=== PATIENT | male | born 1965 | race Caucasian/White ===

== ENCOUNTER 2022-05-24 08:59 | Observation (INO) ==
[2022-05-24] MEDS ORDERED: cefTRIAXone SODIUM 2,000 MG/70 ML BAG IV STA (10:11)
--- NOTE | 2022-05-24 10:13 | Emergency Department Note ---
Impression & Plan Cellulitis of left hand, Infected dog bite of hand, Failure of outpatient treatment ED Provider Note CHIEF COMPLAINT: Continued infection in the left hand x5 days HISTORY OF PRESENT ILLNESS: Patient is a [id number] 56-year-old male with past medical history significant for hypertension, dyslipidemia, gout, fibromyalgia, and other chronic medical problems returns the emergency depar tment for continued left hand pain. Patient was seen and evaluated here 1 week ago for urinary symptoms and diagnosed with a UTI. He was started on Cipro for 10 days. He came back 2 days later, this time complaining of pain in the left hand and the left elbow after he had been bitten by his own dog several days prior to that. He was thoroughly evaluated and treated for an infected dog bite. Metronidazole was added to his regimen for 8 days. Patient states that the left elbow pain is completely resolved. He has full range of motion here, still has some fullness and swelling over the olecranon bursa but he is primarily concerned because he still has pain in the left second MCP joint near the site of the dog bite. He has been taking Tylenol for pain and using warm compresses. He is taking the antibiotics as prescribed. He states his pain is a constant, throbbing 6/10 and he is unable to move the fingers normally secondary to pain and swelling. [facility] REVIEW OF SYSTEMS: Review of systems as per HPI. All other systems reviewed we re negative. 10 systems reviewed. PMH: Electronic medical records are reviewed and summarized as above/below. See Problem List. He reports that his tetanus is up-to-date. SOCIAL HISTORY: Patient lives at home. Non-smoker. PHYSICAL EXAM: Vital Signs: Reviewed Nurse's notes. CONSTITUTIONAL: Patient is a well-appearing 56-year-old male who is awake and alert and in no acute distress sitting upright on the gurney. He has his left arm in a sling. HEART: Regular rate and rhythm. LUNGS: Clear to auscultation. MUSCULOSKELETAL: Examination of the left upper extremity note a scabbed over h ealing bite site on the dorsal aspect of the left hand, over the second MCP joint. He is quite tender to palpation over this area, there is soft tissue swelling on both the palmar and volar aspect of the finger. Pain extends out the second digit, to the DIP joint. He has pain with passive extension, and with passive flexion. His active range of motion is also markedly limited secondary to pain and soft tissue swelling. There is no erythema or lymphangitic streaking. The wrist is nontender to palpation, he has pain in the left second finger with the wrist flexion. The left elbow notes some bogginess and fullness over the olecranon consistent with bursitis but it is nontender. There is no redness or warmth. Elbow range of motion is full. The left upper extremity is neurovascularly intact. EMERGENCY DEPARTMENT COURSE: The patient was seen and assessed as above. Old records are reviewed. He presents emergency department for evaluation of ongoing left hand pain after being bitten by his dog over a week ago. He has been on antibiotics, double coverage with Cipro and metronidazole since last Tuesday, 5 days ago but his symptoms are getting worse. Urine culture grew a pansensitive E. coli. IV lock was initiated. CBC with differential, sed rate, PT/INR, BMP and C-reactive protein were collected. CT scan of the left hand with IV contrast was performed. Patient was given ceftriaxone 2 g IV empirically. Laboratory studies are reassuring. White count is normal. His sed rate and C- reactive protein are elevated at 38 and 2.43 respectively, but are improved from 5 days ago. His INR is mildly elevated at 3.3. Electrolytes and renal functions are normal. CT scan of the left hand is concerning for cellulitis of the left second finger and possible myositis. There is a joint effusion with synovial thickening and enhancement of the left second MCP joint, nonspecific in nature, could be infectious or inflammatory. Septic arthritis cannot be excluded. There is no fracture. No soft tissue gas. No evidence for acute osteomyelitis. I did review patient history, presentation and ED work-up with attending physician, Dr. Mcclain. Consultation was placed with orthopedic surgery, I have reviewed the patient with Dr. Spaulding ([facility] He does agree with admission for IV antibiotics. He does not think that he has a surgical need immediately but they would be happy to consult. He did also asked that I have the patient placed in a splint to rest the affected joint. This was ordered. I did order a COVID test for admitting purposes. Nursing staff reported to me that he refused this. I did speak with Dr. You with the [place] hospitalist team for admission. Differential diagnoses considered included fracture, cellulitis, abscess, tendon rupture, infectious tenosynovitis, septic joint, osteomyelitis, among others. Past Med/Surg History Medical History Allergic rhinitis Asthma Fibromyalgia Gout History of blood clots leg History of bronchitis Hypercholesteremia Hypertension Memory loss Surgical History History of vasectomy Hx of colonoscopy Family History Father Prostate cancer Other No family history of adverse response to anesthesia No family history of bleeding disorder Social History Smoking Status: Never smoker Second Hand Exposure: No; Hx Alcohol Use: Yes Hx Substance Use: No Preferred Language: Bengali marital status: Current Living Situation Comment: Spouse and children current occupational status: employed 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 Feels Safe at Home: Yes Physical Activity Frequency: 3-4 Times per Week Allergies Allergies Allergy/AdvReac Type Severity Reaction Status Date / Time Penicillins Allergy Unknown CAN'T Verified 05/24/22 15:07 REMEMBER Home Meds Home Medications Medication Instructions Recorded Confirmed cholecalciferol (vitamin D3) 25 1,000 unit PO DAILY 07/02/19 05/24/22 mcg (1,000 unit) chewable tablet warfarin 10 mg tablet 5 mg PO QPM 07/02/19 05/24/22 losartan 100 mg tablet 100 mg PO DAILY 04/01/20 05/24/22 atorvastatin 20 mg tablet 20 mg PO QPM 05/17/22 05/24/22 fluticasone 500 mcg-salmeterol 50 2 inh inhalation BID 05/17/22 05/24/22 mcg/dose blistr powdr for inhalation (Wixela Inhub) hydrochlorothiazide 12.5 mg tablet 12.5 mg PO DAILY 05/17/22 05/24/22 pregabalin 75 mg capsule (Lyrica) 75 mg PO DAILY 05/17/22 05/24/22 Previous Rx's Medication Instructions Recorded ciprofloxacin HCl 500 mg tablet 500 mg PO BID 14 days #28 tabs 05/17/22 (Cipro) metronidazole 500 mg tablet 500 mg PO TID #29 tabs 05/19/22 Results & Data (ED) Vital Signs Vital Signs - 24 hr 05/24/22 09:11 05/24/22 12:59 05/24/22 10:59 Temperature 36.9 C Temperature Source Oral Pulse Rate 75 Pulse Rate [Finger] 59 L 62 Pulse Rhythm [Finger] Regular Regular Pulse Strength [Finger] Normal Normal Respiratory Rate 18 20 18 Respiratory Effort / Characteristics Non-Labored Spontaneous Non-Labored Spontaneous Respiratory Depth Normal Normal Respiratory Pattern Regular Blood Pressure 127/92 Blood Pressure [Right Arm] 110/76 117/83 Blood Pressure Mean 103 Blood Pressure Mean [Right Arm] 87 94 Blood Pressure Position [Right Arm] Lying Lying Pulse Oximetry 97 98 96 Oxygen Delivery Method Room Air Room Air Room Air Sepsis Recent Fever Within 48 Hours No Sepsis New/Unexplained Change in Mental Status No Sepsis Action Taken by Nursing No Action Required Home Medications Current Medication List: was personally reviewed by me Laboratory Data Attestation: I reviewed the patient's lab results. Result diagrams: 05/24/22 10:23 05/24/22 10:23 Lab Results 05/24/22 05/24/22 05/24/22 Range/Units 10:23 10:23 10:23 WBC 8.79 (4.8-10.8) K/ul RBC 5.28 (4.63-6.08) M/uL Hgb 15.5 (14.0-18.0) g/dl Hct 45.4 (40.1-51.0) % MCV 86.0 (80.0-100.0) fL MCH 29.4 (25.0-34.0) pg MCHC 34.1 (32.0-36.0) g/dL RDW Std Deviation 41.9 (36.4-46.3) fL RDW Coeff of Aysha 13.3 (11.5-14.5) % Plt Count 288 (130-400) K/uL MPV 9.9 (9.4-12.4) fL Immature Gran % (Auto) 5.0 % Neut % (Auto) 62.4 % Lymph % (Auto) 23.7 % Redwood % (Auto) 6.1 % Eos % (Auto) 1.7 % Baso % (Auto) 1.1 % Neut # (Auto) 5.48 (1.4-6.5) K/uL Lymph # (Auto) 2.08 (1.2-3.4) K/uL Redwood # (Auto) 0.54 (0.24-0.82) K/uL Eos # (Auto) 0.15 (0-0.50) K/uL Baso # (Auto) 0.10 (0-0.2) K/uL Immature Gran # (Auto) 0.44 H (0.00-0.02) K/uL ESR 38 H (0-20) mm/hr PT (9.0-12.0) Seconds INR (0.9-1.1) Sodium 138 (136-145) mmol/L Potassium 4.1 (3.5-5.1) mmol/L Chloride 105 (98-107) mmol/L Carbon Dioxide 26 (21-32) mmol/L Anion Gap 7 (3-11) BUN 14 (6-23) mg/dl Creatinine 0.95 (0.6-1.4) mg/dl Est Cr Clr Drug Dosing 117.0 ml/min Est GFR ( Amer) 104.8 ml/min Est GFR (Non-Af Amer) 90.4 ml/min BUN/Creatinine Ratio 14.7 (10-20) Glucose 110 H (70-99(Fasting)) mg/dl Calcium 9.5 (8.5-10.1) mg/dl C-Reactive Protein 2.43 H (0-0.5) mg/dl 05/24/22 Range/Units 10:23 WBC (4.8-10.8) K/ul RBC (4.63-6.08) M/uL Hgb (14.0-18.0) g/dl Hct (40.1-51.0) % MCV (80.0-100.0) fL MCH (25.0-34.0) pg MCHC (32.0-36.0) g/dL RDW Std Deviation (36.4-46.3) fL RDW Coeff of Aysha (11.5-14.5) % Plt Count (130-400) K/uL MPV (9.4-12.4) fL Immature Gran % (Auto) % Neut % (Auto) % Lymph % (Auto) % Redwood % (Auto) % Eos % (Auto) % Baso % (Auto) % Neut # (Auto) (1.4-6.5) K/uL Lymph # (Auto) (1.2-3.4) K/uL Redwood # (Auto) (0.24-0.82) K/uL Eos # (Auto) (0-0.50) K/uL Baso # (Auto) (0-0.2) K/uL Immature Gran # (Auto) (0.00-0.02) K/uL ESR (0-20) mm/hr PT 32.9 H (9.0-12.0) Seconds INR 3.3 H (0.9-1.1) Sodium (136-145) mmol/L Potassium (3.5-5.1) mmol/L Chloride (98-107) mmol/L Carbon Dioxide (21-32) mmol/L Anion Gap (3-11) BUN (6-23) mg/dl Creatinine (0.6-1.4) mg/dl Est Cr Clr Drug Dosing ml/min Est GFR ( Amer) ml/min Est GFR (Non-Af Amer) ml/min BUN/Creatinine Ratio (10-20) Glucose (70-99(Fasting)) mg/dl Calcium (8.5-10.1) mg/dl C-Reactive Protein (0-0.5) mg/dl Administered Medications Discontinued Medications Ceftriaxone Sodium (Rocephin) 2,000 mg in 70 mls @ 140 mls/hr IV NOW STA Stop: 05/24/22 10:40 Last Infusion: 05/24/22 11:24 Dose: 0 mls/hr Documented By: [id number] Admin: 05/24/22 10:44 Dose: 140 mls/hr Documented By: HG Ioversol (Optiray 350 100ml) 94 ml IV ONCE ONE Stop: 05/24/22 11:34 Last Admin: 05/24/22 11:33 Dose: 94 ml Documented By: AGUSTÍN Imaging Data Attestation: I personally reviewed and interpreted this imaging study as follows: Radiologist's Impression: Hand CT 05/24/22 10:11 CT hand LT w con CLINICAL HISTORY: DOG BITE, EVAL PAIN AT 2ND MCP JOINT COMPARISON STUDY: No previous studies for comparison. TECHNIQUE: Axial images of the left hand were obtained following intravenous injection of 94 cc of Optiray 350 IV. Sagittal and coronal reconstructions were viewed. Automated exposure control was utilized for the study. A dose lowering technique was utilized adhering to the principles of ALARA. FINDINGS: Alignment of the left hand is anatomic. There is no acute fracture. There is no radiopaque foreign body. Carpal bones are intact. Cystic change within the distal scaphoid is degenerative. Note is made of calcifications along the palmar aspect of the carpal bones. There are also multifocal soft tissue calcifications along the lateral aspect of the left second metacarpophalangeal joint. There is a left second metacarpophalangeal joint effusion with synovial enhancement. Note is made of infiltration of the left second finger consistent with cellulitis. No soft tissue gas is present. No fluid collections are p resent. There is apparent soft tissue thickening along the flexor musculature of the left second finger. There is no CT evidence for tenosynovitis. No bony erosions are identified to suggest acute osteomyelitis. IMPRESSION: 1. Findings consistent with left second finger cellulitis and possible myositis of the flexor musculature. No soft tissue gas. No fracture. No evidence for acute osteomyelitis. 2. Soft tissue calcifications adjacent to the left second metacarpophalangeal joint. Although nonspecific, these are likely degenerative or inflammatory. A post traumatic etiology is considered less likely. 3. Left second metacarpophalangeal joint effusion with synovial thickening and enhancement. This joint effusion is also nonspecific and could be infectious or inflammatory. However, a septic arthritis cannot be excluded by imaging. ACT 112: Negative or not required by law. Electronically signed by: Joe Mckeon M.D. 05/24/2022 12:11 PM Discharge Plan Visit Data Chief Complaint: Finger Pain Stated Complaint: L INDEX FINGER PAIN ED Provider: Jayden Mcclain ED Midlevel Provider: Chester Ac Discharge Problem: Cellulitis of left hand, Infected dog bite of hand, Failure of outpatient treatment Patient Disposition: Being Evaluated by Hospitalist Forms Stand Alone Forms: My [facility] Prescriptions Prescriptions: No Action losartan 100 mg tablet 100 mg PO DAILY warfarin 10 mg tablet 5 mg PO QPM cholecalciferol (vitamin D3) 1,000 unit Tablet,Chewable 1,000 unit PO DAILY metronidazole 500 mg tablet 500 mg PO TID Qty: 29 0RF atorvastatin 20 mg tablet 20 mg PO QPM pregabalin [Lyrica] 75 mg Capsule 75 mg PO DAILY hydrochlorothiazide 12.5 mg tablet 12.5 mg PO DAILY fluticasone propion-salmeterol [Wixela Inhub] 500-50 mcg/dose blister with device 2 inh INHALATION BID ciprofloxacin HCl [Cipro] 500 mg tablet 500 mg PO BID 14 Days Qty: 28 0RF Referrals Referrals: PCP,NO [Primary Care Provider] -
[2022-05-24 10:41] LABS: Basophils % (auto) 1.1 %; Eosinophils # (auto) 0.15 K/uL (0-0.50); Eosinophils % (auto) 1.7 %; Hematocrit (blood only) 45.4 % (40.1-51.0); Hemoglobin 15.5 g/dl (14.0-18.0); Immature Granulocytes # (auto) 0.44 K/uL (0.00-0.02); Lymphocytes # (auto) 2.08 K/uL (1.2-3.4); Lymphocytes % (auto) 23.7 %; Mean Corpuscular Hemoglobin 29.4 pg (25.0-34.0); Mean Corpuscular Hgb Conc 34.1 g/dL (32.0-36.0); Mean Platelet Volume 9.9 fL (9.4-12.4); Monocytes # (auto) 0.54 K/uL (0.24-0.82); Monocytes % (auto) 6.1 %; Neutrophils # (auto) 5.48 K/uL (1.4-6.5); Neutrophils % (auto) 62.4 %; Platelet Count 288 K/uL (130-400); RDW Coefficient of Variation 13.3 % (11.5-14.5); RDW Standard Deviation 41.9 fL (36.4-46.3); Red Blood Count 5.28 M/uL (4.63-6.08); White Blood Count 8.79 K/ul (4.8-10.8)
[2022-05-24 10:56] LABS: INR 3.3 (0.9-1.1); Prothrombin Time 32.9 Seconds (9.0-12.0)
[2022-05-24 11:12] LABS: BUN Creatinine Ratio 14.7 (10-20); C Reactive Protein 2.43 mg/dl (0-0.5); Calcium 9.5 mg/dl (8.5-10.1); Est GFR (African American) 104.8 ml/min; Est GFR (Non-African American) 90.4 ml/min; Potassium 4.1 mmol/L (3.5-5.1)
[2022-05-24] MEDS ORDERED: OPTIRAY 350 100ml IV ONE (11:33)
--- NOTE | 2022-05-24 12:12 | CT Scan Report ---
CT hand LT w con CLINICAL HISTORY: DOG BITE, EVAL PAIN AT 2ND MCP JOINT COMPARISON STUDY: No previous studies for comparison. TECHNIQUE: Axial images of the left hand were obtained following intravenous injection of 94 cc of Op tiray 350 IV. Sagittal and coronal reconstructions were viewed. Automated exposure control was utiliz ed for the study. A dose lowering technique was utilized adhering to the principles of ALARA. FINDINGS: Alignment of the left hand is anatomic. There is no acute fracture. There is no radiopaque foreign body. Carpal bones are intact. Cystic change within the distal scaphoid is degenerative. Note is made of calcifications along the palmar aspect of the carpal bones. There are also multifocal sof t tissue calcifications along the lateral aspect of the left second metacarpophalangeal joint. There is a left second metacarpophalangeal joint effusion with synovial enhancement. Note is made of infilt ration of the left second finger consistent with cellulitis. No soft tissue gas is present. No fluid collections are present. There is apparent soft tissue thickening along the flexor musculature of the left second finger. There is no CT evidence for tenosynovitis. No bony erosions are identified to garcia ggest acute osteomyelitis. IMPRESSION: 1. Findings consistent with left second finger cellulitis and possible myositis of the flexor muscula ture. No soft tissue gas. No fracture. No evidence for acute osteomyelitis. 2. Soft tissue calcifications adjacent to the left second metacarpophalangeal joint. Although nonspec ific, these are likely degenerative or inflammatory. A post traumatic etiology is considered less lik aniyah. 3. Left second metacarpophalangeal joint effusion with synovial thickening and enhancement. This join t effusion is also nonspecific and could be infectious or inflammatory. However, a septic arthritis c annot be excluded by imaging. ACT 112: Negative or not required by law. Electronically signed by: Joe Mckeon M.D. 05/24/2022 12:11 PM
--- NOTE | 2022-05-24 14:39 | History & Physical Report ---
Date of Service May 24, 2022 Assessment & Plan (1) Cellulitis of left hand: Plan: Infected Dog Bite R Hand - Dog Bite 05/14-05/15. Did not initially report this, was seen for UTI 05/17, and then returned 05/19 with hand pain for which Flagyl was added to Cipro which she was placed on for the UTI -Discussed between ER and Dr. Spaulding: Not immediately surgical. Recommended IV antibiotics. - Discussed w/ ortho PA at bedside. Clinical re-eval 05/25 for washout eval, continue abx for now. Penicillin allergy, unknown reaction Admitted on Rocephin plus Flagyl IV. If worsening can switch to Carbapenem, given downtrending inflammatory markers low suspicion for treatment failure at this time. No leukocytosis. Hemoglobin 15.5. ESR 38 (from 5311/9). CRP 2.43 from 14.79 creatinine is normal at baseline, admitting creatinine 0.95. - [place] patient, tetanus up to date. 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 -INR greater than 3 on admission Warfarin held INR trended Suspect supratherapeutic INR in the setting of antibiotic use Asthma Continue inhaler/formulary. Patient's home inhaler switched to formulary equivalent, reports his can bring in his home. If he brings in his home may verify with pharmacy and use his home Wixela twice daily instead. No signs of asthma exacerbation Hyperlipidemia Continue statin DVT prophylaxis: Anticoagulated Disposition: Medical surgical Diet: Heart healthy CODE STATUS: Full code (2) Infected dog bite of hand: (3) Hypertension: (4) Asthma: (5) Hypercholesteremia: History of Present Illness Primary Care Provider: NO PCP Magdiel is a 56-year-old male with a past medical history of hyperlipidemia, gout, hypertension, asthma who is right-hand dominant and who presents for reevaluation of left hand pain. Recently completed a 10-day course of ciprofloxacin for UTI, presents today with pain in the left hand and elbow after a dog bite several days prior. He was seen in the ER following this and Flagyl was added to ciprofloxacin. Elbow pain completely resolved, but continues to have pain at the left second MCP joint near the dog bite. [facility] who was not scheduled for follow-up until next week. CT shows left second finger cellulitis with suspected myositis of the flexor muscle. Soft tissue calcifications are present, left second metacarpophalangeal joint effusion with thickening and enhancement nonspecific but which cannot exclude septic arthritis Per patient got nipped by his dog when playing on Sat, was seen and started on Flagyl. Was seen on Tuesday for a UTI but hadn't mentioned the hand bite. At first pain was from elbow to hand, after Cipro/Flagyl the elbow pain completely resolved and can move but hand pain has not improved at all. Pain is worse in 2nd MCP and PIP, pain radiating between the two joints when he bends it. WOrsened by pain. Can only flex 2nd digit about 90 degrees before limited by induction of pain. No numbness/tingling in the figertips. No pain in MCP of the 1, 3-5th digits. No pain on wrist extension, +pain fromtightness on wrist flexion at the knuckle. No fevers, chills, sweats, numbness, tingling. +swelling in the hand. No pus/discharge. Abx as noted, APAP 650mg 3 pills at once in the evening. Helps a little. At present pain is 4/10. Has not taking any tylneol today. No narcotics per pt 2/2 severe nausea Medical History: Reviewed Medications: Reviewed. Takes Losartan, atorvastain, hctz, lyrica, warfarin. Wixela Surgical History: Reviewed Allergies: Reviewed. PCN but not sure what the allergy was. Social History: Chews, 1 can per week. No alcohol use. Code Status: would be surrogate DM. Full Code. Allergies Allergy/AdvReac Type Severity Reaction Status Date / Time Penicillins Allergy Unknown CAN'T Verified 05/17/22 17:35 REMEMBER Home Medications Medication Instructions Recorded Confirmed Type cholecalciferol (vitamin D3) 25 1,000 unit PO DAILY 07/02/19 05/17/22 History mcg (1,000 unit) chewable tablet warfarin 10 mg tablet 5 mg PO QPM 07/02/19 05/17/22 History losartan 100 mg tablet 100 mg PO DAILY 04/01/20 05/17/22 History atorvastatin 20 mg tablet 20 mg PO QPM 05/17/22 05/17/22 History ciprofloxacin HCl 500 mg tablet 500 mg PO BID 14 days #28 tabs 05/17/22 Rx (Cipro) fluticasone 500 mcg-salmeterol 50 2 inh inhalation BID 05/17/22 05/17/22 History mcg/dose blistr powdr for inhalation (Wixela Inhub) hydrochlorothiazide 12.5 mg tablet 12.5 mg PO DAILY 05/17/22 05/17/22 History pregabalin 75 mg capsule (Lyrica) 75 mg PO DAILY 05/17/22 05/17/22 History metronidazole 500 mg tablet 500 mg PO TID #29 tabs 05/19/22 Rx Past Med/Surg History Medical History Allergic rhinitis Asthma Fibromyalgia Gout History of blood clots leg History of bronchitis Hypercholesteremia Hypertension Memory loss Surgical History History of vasectomy Hx of colonoscopy Family History Father Prostate cancer Other No family history of adverse response to anesthesia No family history of bleeding disorder Social History Smoking Status: Never smoker Second Hand Exposure: No; Hx Alcohol Use: Yes Hx Substance Use: No Preferred Language: Korean marital status: Current Living Situation Comment: Spouse and children current occupational status: employed 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 NAD. Cooperative. HEENT: Atraumatic, normocephalic. Vision and hearing intact Pulm: CTAB A&P. -wheezes, -rales, -rhonchi. Symmetrical chest rise. No increased work of breathing. No respiratory distress. Cardiac: RRR, -mrg. Radial pulses intact and symmetrical. Abdominal: Nontender, nondistended, soft. BS present. Extremities: Left second MCP with localized swelling and small area of scab, scant erythema. Prominently tender to the touch. Pain is elicited at the MCP and radiating between the PIP on finger flexion, patient is unable to flex the second digit more than 90 degrees due to pain limitation. Mild pain on wrist flexion due to tightness, no pain on wrist extension. Sensation soft touch intact in all 5 digits bilaterally, slight tingling in second fingertip on the left hand. No tracking erythema into the forearm, elbow and forearm is nontender and elbow flexion/extension on the left is without pain and without pain on passive movement. Results & Data Results & Data ([facility]) Vital Signs (Past 12 Hours) Vital Signs Temp Pulse Pulse Resp BP BP Pulse Ox 05/24/22 10:59 62 18 117/83 96 05/24/22 12:59 59 L 20 110/76 98 05/24/22 09:11 36.9 C 75 18 127/92 97 O2 Del Method 05/24/22 10:59 Room Air 05/24/22 12:59 Room Air 05/24/22 09:11 Room Air PG Care Time/CCT Total # of Minutes Spent Total Time Spent with Patient: Total time spent is greater than 50% in coordination of care (as documented) at patient's floor/unit and/or counseling patient: Coding Level of Care Code INT OBSERVATION CARE 50M LVL 2 Diagnoses Cellulitis of left hand L03.114 Infected dog bite of hand S61.459A; L08.9; W54.0XXA Hypertension I10 Hypertension type: unspecified Asthma J45.909 Hypercholesteremia E78.00 (1) Hypertension Hypertension type: unspecified Qualified Code(s): I10 - Essential (primary) hypertension
--- NOTE | 2022-05-24 15:06 | Orthopedic Consultation ---
Date of Service May 24, 2022 Assessment & Plan (1) Cellulitis of left hand: Patient to be admitted to med/surg floor and placed on IV antibiotics. I discussed the possibility of an open I and D in the AM. I think giving the IV antibiotics a day is appropriate. I placed him NPO after midnight. Decision for I and D will be made in the AM. (2) Infected dog bite of hand: History of Present Illness Reason for Consultation: . Requesting Physician: . Patient was bitten in his left hand by his dog last tuesday. He developed redness and pain that radiated from the puncture wound over the web extensor tendon over the left index finger. He states that pain and redness went up to his elbow. He came to the ER and was placed on oral antibiotics. The antibiotic helped with pain and redness in the forearm but he still has a lot of pain trying to flex and extend his index finger. He describes no fever, fatigue, numbness, or tingling. Allergies Allergy/AdvReac Type Severity Reaction Status Date / Time Penicillins Allergy Unknown CAN'T Verified 05/24/22 15:07 REMEMBER Home Medications Medication Instructions Recorded Confirmed Type cholecalciferol (vitamin D3) 25 1,000 unit PO DAILY 07/02/19 05/24/22 History mcg (1,000 unit) chewable tablet warfarin 10 mg tablet 5 mg PO QPM 07/02/19 05/24/22 History losartan 100 mg tablet 100 mg PO DAILY 04/01/20 05/24/22 History atorvastatin 20 mg tablet 20 mg PO QPM 05/17/22 05/24/22 History ciprofloxacin HCl 500 mg tablet 500 mg PO BID 14 days #28 tabs 05/17/22 05/24/22 Rx (Cipro) fluticasone 500 mcg-salmeterol 50 2 inh inhalation BID 05/17/22 05/24/22 History mcg/dose blistr powdr for inhalation (Wixela Inhub) hydrochlorothiazide 12.5 mg tablet 12.5 mg PO DAILY 05/17/22 05/24/22 History pregabalin 75 mg capsule (Lyrica) 75 mg PO DAILY 05/17/22 05/24/22 History metronidazole 500 mg tablet 500 mg PO TID #29 tabs 05/19/22 05/24/22 Rx Past Med/Surg History Medical History Allergic rhinitis Asthma Fibromyalgia Gout History of blood clots leg History of bronchitis Hypercholesteremia Hypertension Memory loss Surgical History History of vasectomy Hx of colonoscopy Family History Father Prostate cancer Other No family history of adverse response to anesthesia No family history of bleeding disorder Social History Smoking Status: Never smoker Second Hand Exposure: No; Hx Alcohol Use: Yes Alcohol type: wine Hx Substance Use: No Preferred Language: Montenegrin Communication Ability: Effective Geotechnical Field Technician Required: No Beliefs That Will Affect Care: None marital status: Current Living Situation: Spouse Current Living Situation Comment: Spouse and children current occupational status: employed 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 Physical Exam Small puctureure wound on the dorsal aspect of the base of the left index finger. No significant fluid collection was noted, no drainage from the puncture wound. Good capillary refill. Neurovascularly intact. Significant pain with ROM of the left index finger. Results & Data Results & Data Laboratory Results . Diagnostic Findings . PG Care Time/CCT Total # of Minutes Spent Total Time Spent with Patient: Total time spent is greater than 50% in coordination of care (as documented) at patient's floor/unit and/or counseling patient: Coding Level of Care Code 82297 Inpt Consult Level 2 Diagnoses Cellulitis of left hand L03.114 Infected dog bite of hand S61.459A; L08.9; W54.0XXA
[2022-05-24] MEDS ORDERED: POLYETHYLENE (MIRALAX) 17 GM PACK PO PRN (17:02)
[2022-05-24] MEDS ORDERED: ACETAMINOPHEN 325 MG TAB PO PRN (17:02)
[2022-05-24] MEDS ORDERED: ONDANSETRON INJ 2 MG/ML 2 ML VIAL IV PRN (17:02)
[2022-05-24] MEDS ORDERED: oxyCODONE HCL IR 5 MG TAB (IMMEDIATE RELEASE) PO PRN (17:02)
[2022-05-24] MEDS: metroNIDAZOLE 500 MG/100 ML BAG IV SCH (18:08)
[2022-05-24] MEDS: ATORVASTATIN 20 MG TAB PO SCH (20:13)
[2022-05-25] MEDS: metroNIDAZOLE 500 MG/100 ML BAG IV SCH ×3 (00:38→17:09)
[2022-05-25 06:24] LABS: Eosinophils # (auto) 0.19 K/uL (0-0.50); Eosinophils % (auto) 1.8 %; Hematocrit (blood only) 43.6 % (40.1-51.0); Hemoglobin 14.7 g/dl (14.0-18.0); Immature Granulocytes # (auto) 0.49 K/uL (0.00-0.02); Immature Granulocytes % (auto) 4.7 %; Mean Corpuscular Hemoglobin 29.2 pg (25.0-34.0); Mean Corpuscular Hgb Conc 33.7 g/dL (32.0-36.0); Mean Corpuscular Volume 86.7 fL (80.0-100.0); Mean Platelet Volume 10.4 fL (9.4-12.4); Monocytes # (auto) 0.89 K/uL (0.24-0.82); Monocytes % (auto) 8.6 %; Neutrophils # (auto) 5.68 K/uL (1.4-6.5); Neutrophils % (auto) 54.9 %; Platelet Count 286 K/uL (130-400); RDW Coefficient of Variation 13.2 % (11.5-14.5); RDW Standard Deviation 41.2 fL (36.4-46.3); Red Blood Count 5.03 M/uL (4.63-6.08); White Blood Count 10.35 K/ul (4.8-10.8)
[2022-05-25 06:56] LABS: BUN Creatinine Ratio 18.6 (10-20); C Reactive Protein 1.99 mg/dl (0-0.5); Est GFR (African American) 102.2 ml/min; Est GFR (Non-African American) 88.1 ml/min; Potassium 4.3 mmol/L (3.5-5.1)
--- NOTE | 2022-05-25 07:51 | Anesthesiology Consultation ---
Date of Service May 25, 2022 Assessment & Plan (1) Encounter for pre-operative examination: Chart Review Chart Review: Acceptable Risk for Surgery and Patient NOT seen in Pre Admission Testing Consults Requested none History Surgery Operation Date: 05/25/22 07:00 Proposed Procedures p Incision and Drainage Left Hand - Salvatore Spaulding MD Height/Weight Height: 5 ft 11 in Weight: 118.5 kg Allergies Allergy/AdvReac Type Severity Reaction Status Date / Time Penicillins Allergy Unknown CAN'T Verified 05/24/22 15:07 REMEMBER Medications Home Medications Medication Instructions Recorded Confirmed Last Taken cholecalciferol (vitamin D3) 25 1,000 unit PO DAILY 07/02/19 05/24/22 05/17/22 mcg (1,000 unit) chewable tablet warfarin 10 mg tablet 5 mg PO QPM 07/02/19 05/24/22 05/16/22 losartan 100 mg tablet 100 mg PO DAILY 04/01/20 05/24/22 05/17/22 atorvastatin 20 mg tablet 20 mg PO QPM 05/17/22 05/24/22 05/16/22 ciprofloxacin HCl 500 mg tablet 500 mg PO BID 14 days #28 tabs 05/17/22 05/24/22 Unknown (Cipro) fluticasone 500 mcg-salmeterol 50 2 inh inhalation BID 05/17/22 05/24/22 05/17/22 08:00 mcg/dose blistr powdr for inhalation (Lydia Inhub) hydrochlorothiazide 12.5 mg tablet 12.5 mg PO DAILY 05/17/22 05/24/22 05/17/22 pregabalin 75 mg capsule (Lyrica) 75 mg PO DAILY 05/17/22 05/24/22 05/17/22 metronidazole 500 mg tablet 500 mg PO TID #29 tabs 05/19/22 05/24/22 Unknown Active Medications Generic Name Dose Route Start Last Admin Trade Name Freq PRN Reason Stop Dose Admin Atorvastatin Calcium 20 mg 05/24/22 21:00 05/24/22 20:13 Atorvastatin 20 Mg Tab PO 06/23/22 20:59 Not Given QPM SKY Fluticasone/Vilanterol 1 puffs 05/25/22 08:00 05/25/22 09:30 Fluticasone/Vilanterol 200/25mcg 14 Puffs/Inhaler INH 06/24/22 07:59 1 puffs QDR SKY Administration Hydrochlorothiazide 12.5 mg 05/25/22 09:00 05/25/22 09:31 Hydrochlorothiazide 25 Mg Tab PO 06/24/22 08:59 12.5 mg DAILY SKY Administration Ceftriaxone Sodium 2,000 mg/ 70 mls @ 100 mls/hr 05/25/22 09:00 05/25/22 10:20 Dextrose IV 06/01/22 08:59 Infused DAILY SKY Infusion Protocol Metronidazole 500 mg in 100 mls @ 100 mls/hr 05/24/22 17:30 05/25/22 11:47 Flagyl IV 05/31/22 17:29 Infused Q8H SKY Infusion Losartan Potassium 100 mg 05/25/22 09:00 05/25/22 09:31 Losartan Potassium 50 Mg Tab PO 06/24/22 08:59 100 mg DAILY SKY Administration Pregabalin 75 mg 05/25/22 09:00 05/25/22 09:30 Pregabalin 75 Mg Cap PO 06/24/22 08:59 75 mg DAILY SKY Administration NPO Date Last Intake of Fluids: 05/24/22 Time Last Intake of Fluids: 23:45 Date Last Intake of Solids: 05/24/22 Time Last Intake of Solids: 18:00 Past Medical History Medical History Allergic rhinitis Asthma Fibromyalgia Gout History of blood clots leg History of bronchitis Hypercholesteremia Hypertension Memory loss Patient was worked up by Dr. 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 Exercise / Class Metabolic Activity II 4-5 Yardwork/Stairs/Walk up hill Past Family History Family History Father Prostate cancer Other No family history of adverse response to anesthesia No family history of bleeding disorder Past Surgical History Surgical History History of vasectomy Hx of colonoscopy Social History Smoking Status: Never smoker tobacco type: smokeless tobacco Hx Alcohol Use: Yes Alcohol type: wine alcohol intake frequency: a few times a month Hx Substance Use: No substance use type: does not use Physical Exam Vital Signs Last Vital Signs Temp 36.6 C 05/25/22 11:09 Pulse 54 L 05/25/22 11:09 Resp 18 05/25/22 11:09 BP 120/79 05/25/22 11:09 Pulse Ox 96 05/25/22 11:09 O2 Del Method 05/25/22 11:09 Testing Laboratory Results 05/25/22 06:00 05/25/22 06:00 PT 32.9 Seconds (9.0-12.0) H 05/24/22 10:23 INR 3.3 (0.9-1.1) H 05/24/22 10:23 05/24/22 10:25 Aerobic Blood Culture - Preliminary Blood No growth in Aerobic bottle after 24 hours. Anaerobic Blood Culture - Preliminary No growth in Anaerobic bottle after 24 hours. 05/24/22 10:23 Aerobic Blood Culture - Preliminary Blood No growth in Aerobic bottle after 24 hours. Anaerobic Blood Culture - Preliminary No growth in Anaerobic bottle after 24 hours. Electrocardiogram Date: 07/02/19 HR 60. Normal sinus rhythm Voltage criteria for left ventricular hypertrophy Abnormal ECG No previous ECGs available Confirmed by Mike Yañez ([id number]) on 07/05/2019 5:38:25 AM Other Testing Myocardial Perfusion study Impression: 1. Normal myocardial perfusion study. 2. Normal wall motion and LV systolic function. EF 61%. 3. Lexiscan induced dyspnea and dizziness. 4. Nondiagnostic Lexiscan ECG.
[2022-05-25] MEDS ORDERED: cefTRIAXone SODIUM 2,000 MG in DEXTROSE 5% 50 ML IV SCH (09:00)
[2022-05-25] MEDS: FLUTICASONE/VILANTEROL 200/25MCG 14 PUFFS/INHALER INH SCH (09:30)
[2022-05-25] MEDS: PREGABALIN 75 MG CAP PO SCH (09:30)
[2022-05-25] MEDS: hydroCHLOROthiazide 25 MG TAB PO SCH (09:31)
[2022-05-25] MEDS: LOSARTAN POTASSIUM 50 MG TAB PO SCH (09:31)
--- NOTE | 2022-05-25 10:32 | Orthopedic Progress Note ---
Date of Service May 25, 2022 Assessment & Plan (1) Cellulitis of left hand: (2) Infected dog bite of hand: Plan The puncture wound is adjacent to the edematous 2nd MCP. Discussed that he has made improvements in cellulitis with IV abx already, but remains with concerns for septic MCP joint. My recommendation was for surgical irrigation and debridement to gain deep culture, decompressoin, and control of a potential septic joint. Benefits will be more likely to eradicate infection and speed the process to a painfree ROM. Risks are bleeding, NV injury, recurrent infection, need for more surgery, pain syndromes, and complications from anesthesia. Alternatives would be prolonged IV antibiotics without culture to direct. He asked appropriate questions, demonstrated a good understanding, and desires to proceed with left hand dog bite wound irrigation and debridement. Continue NPO and current antiobiotic plan. Will receive ancef perioperatively. Informed consent documented at bedside. Subjective Pain persists at hand but resolved in forearm and elbow. Sx not consistent with prior gout attack. Tolerating abx well. Good appetite. Review of Systems All systems reviewed & are unremarkable except as noted in HPI & below. Physical Exam L hand: Minimal edema and erythema today but isolated to dorsal and palmar 2nd MCPJ. Painful attempts at limited available motion from 20d short of full extension to 40d of flexion. Exquisite tenderness to 2nd MCPJ. No proximal extensor nor flexor tendon tenderness. No adjacent IP or MP joint involvement. NV intact. Constitutional WD/WN, vitals as above no acute distress and not intoxicated appearing Respiratory normal respiratory effort; no labored breathing Cardiovascular Extremities: normal capillary refill Results & Data Results & Data Laboratory Results . 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
--- NOTE | 2022-05-25 11:56 | History & Physical Bridge Note ---
Date of Service May 25, 2022 History & Physical Bridge Note I have examined the patient, reviewed the History & Physical and in the interval since the performance of the History & Physical I have noted the following changes of clinical significance: no changes noted
[2022-05-25] MEDS ORDERED: ONDANSETRON INJ 2 MG/ML 2 ML VIAL IV PRN ×2 (12:11→14:51)
[2022-05-25] MEDS ORDERED: ePHEDrine sulfate 50 MG/ML AMP IV PRN ×2 (12:11→14:51)
[2022-05-25] MEDS ORDERED: MoRPHine SULFATE 10 MG/ML CARP/VIAL IV PRN (12:11)
[2022-05-25] MEDS ORDERED: ATROPINE SULFATE 0.1 MG/ML 10ML SYR IV PRN ×2 (12:11→14:51)
[2022-05-25] MEDS ORDERED: EPINEPHrine INJ 1 MG/ML AMP ONE (12:14)
[2022-05-25] MEDS ORDERED: BUPIVACAINE 0.5 % 5 MG/1 ML MPF 30ML VIAL ONE (12:15)
[2022-05-25] MEDS ORDERED: MIDAZOLAM HCL 1 MG/ML 2ML VIAL ONE (12:19)
[2022-05-25] MEDS ORDERED: LIDOCAINE 2% MPF LOCAL 5 ML VIAL INFIL ONE (12:21)
[2022-05-25] MEDS ORDERED: ONDANSETRON INJ 2 MG/ML 2 ML VIAL ONE (12:21)
[2022-05-25] MEDS ORDERED: fentaNYL citrate 100 MCG/2 ML VIAL ONE (12:21)
[2022-05-25] MEDS ORDERED: PROPOFOL IV EMULSION 10 MG/ML 20 ML VIAL IV ONE (12:21)
[2022-05-25] MEDS ORDERED: ceFAZolin 2,000 MG/15 ML IV PUSH IV ONE (12:30)
[2022-05-25] MEDS ORDERED: ceFAZolin 2000MG 2,000 MG/15 ML SYR IV ONE (12:31)
[2022-05-25] MEDS: fentaNYL citrate 100 MCG/2 ML VIAL IV PRN ×2 (13:31→13:39)
--- NOTE | 2022-05-25 13:39 | Anesthesiology Progress Note ---
Date of Service May 25, 2022 Anesthesia Post Procedure Vital Signs Vital Signs: Temp Pulse Pulse Resp BP BP Pulse Ox 05/25/22 11:09 36.6 C 54 L 18 120/79 96 05/25/22 07:58 36.7 C 51 L 16 124/70 96 05/24/22 21:52 37.0 C 59 L 16 132/74 97 05/24/22 17:00 36.7 C 64 19 136/80 98 05/24/22 15:25 72 20 126/66 96 O2 Del Method 05/25/22 11:09 Room Air 05/25/22 07:58 Room Air 05/24/22 21:52 Room Air 05/24/22 17:00 Room Air 05/24/22 15:25 Room Air Transfer of Care Handoff Completed per policy Notes Mental Status: alert / awake / arousable and participated in evaluation Patient Amnestic to Procedure: Yes Nausea / Vomiting: adequately controlled Pain: adequately controlled Airway Patency, RR, SpO2: stable & adequate BP & HR: stable & adequate Hydration State: stable & adequate Anesthetic Complications: no major complications apparent and Pt Satisfied with anesthetic care
--- NOTE | 2022-05-25 13:45 | Operative Report ---
PG Post Operative Report Pre & Post Diagnosis Operation Date: 05/25/22 07:00 Pre-Op Diagnosis: Dog Bite, Cellulitis Left Hand, septic metacarpophalangeal joint Post-Op Diagnosis: Dog Bite, Cellulitis Left Hand, septic metacarpophalangeal joint I identified the patient and participated in the time-out.: Yes Procedure Operation Date: 05/25/22 07:00 Actual Procedures p Incision and Drainage of dog bite wound and second metacarpophalangeal joint of left Hand(Left) - Salvatore Spaulding MD Surgeon Salvatore Spaulding MD Simplex Operator Javier Angel PA-C Estimated Blood Loss 5 Findings See Below Puncture wound was full-thickness through skin. No samantha purulence in the subcutaneous tissues. Small arthrotomy was made in line with the traumatic wound, and thickened synovial fluid was encountered. No gross purulence. Superficial and joint cultures were taken. 3 L of normal saline irrigation was conducted throughout the joint and wound bed. Specimens Superficial and deep swab cultures Anesthesia Type General Complications none Disposition Accompanied Patient To Recovery: No Disposition: Recovery Room Indications 56-year-old male developed cellulitis and a painful and stiff second metacarpophalangeal joint 2 weeks after dog bite injury. He had failed outpatient oral antibiotics and was admitted for parenteral treatment. Overnight his forearm and hand erythema improved; however, the second metacarpophalangeal remained painful and stiff. We discussed the potential for septic metacarpophalangeal joint. I recommend incision, irrigation debridement with deep cultures to direct antibiotic therapy. We discussed the risks surgery includes but not limited to persistent infection, need for repeat or revision surgery, arthrofibrosis of the second MCP, nerve/vessel injury, problematic bleeding, pain syndromes, blood clots and complications related to anesthesia. He asked appropriate questions, demonstrated good understanding, and was agreeable to proceed with surgery. Description of Procedure On the day of surgery, the patient was greeted in the preoperative holding area. The informed consent was reviewed and confirmed by myself and the patient. The patient identified the surgical site and was marked by me. The patient was then turned over to anesthesia. He was taken to the operating room, and placed supine on the OR table. All bony prominences were well-padded. Nonsterile tourniquet is placed in the proximal forearm. The surgical extremity was then prepped and draped in usual sterile fashion for hand surgery. Low Pressure Firer nurse called for surgical timeout. Antibiotics had been infused, and equipment was available and functional. All were agreeable to proceed. The limb was exsanguinated using an Esmarch bandage, and the tourniquet was inflated to 250 mmHg for less than 10 minutes. Small incision was made over the ulnar border of the second metacarpal phalangeal joint with an ellipse around the traumatic dog bite wound. Subcutaneous dissection was carried out using tenotomy scissors. There was no subcutaneous purulence. A swab culture was taken anyway. The traumatic area was explored down onto the radial side of the extensor tendons. The tendon sheath appeared to be not disrupted. No fluid was able to be expressed along the tendons. The joint capsule was exposed. A clean 15 arden de was used to make a small arthrotomy to allow visualization and access to the joint. There was bubbling synovial fluid that was expressed. No significant purulence and no fluid under pressure. A joint swab culture was taken. [place] flow irrigation was then performed for 3 L through the cystoscopy tubing. The joint was taken through range of motion to wash it out in its entirety. Subcutaneous tissues were irrigated as well. The clinic was left down. Hemostasis was achieved using light pressure and gentle Bovie electrocautery. Skin was then approximated using 4-0 nylon stitches. Skin was dressed using sterile Xeroform, gauze, ABD, contained by web roll and a Coban. The patient tolerated the procedure well, was extubated in the operating room without complication, and transferred to the PACU in stable condition. Disposition: He will remain an inpatient for 24 hours of parenteral antibiotic coverage. At that point, if he is stable, he likely can be discharged on outpatient oral antibiotic regimen for superficial cellulitis. Would recommend outpatient treatment for gout maintenance. He will follow-up in the orthopedic clinic for a wound check no later than 10-14 days postop. He may be range of motion as tolerated to the hand. Physician retail sales assistant attestation: Javier Angel PA-C was present and scrubbed for the duration of the case. He was essential to prepping/draping, patient positioning, retraction, and assistance with wound closure. I attest to the content of the Intraoperative Record and any orders documented therein. Any exceptions are noted below.
[2022-05-25] MEDS ORDERED: fentaNYL citrate 100 MCG/2 ML VIAL IV PRN (14:51)
[2022-05-25] MEDS: KETOROLAC TROMETHAMINE 15 MG/ML VIAL IV PRN ×2 (17:09→23:24)
[2022-05-25] MEDS: ATORVASTATIN 20 MG TAB PO SCH (20:00)
--- NOTE | 2022-05-25 20:54 | Hospitalist Progress Note ---
Date of Service May 25, 2022 Assessment & Plan (1) Cellulitis of left hand: Plan: Infected Dog Bite R Hand - Dog Bite 05/14-05/15. Did not initially report this, was seen for UTI 05/17, and then returned 05/19 with hand pain for which Flagyl was added to Cipro which he was placed on for the UTI - Penicillin allergy, unknown reaction, recommend follow up testing as outpatient, pt does not wish to try Augmentin as an inpatient - per current ID connect guidelines (doxy vs. 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 INR greater than 3 on admission, unclear INR this morning when he was taken to surgery but was not reversed Warfarin held INR trended Suspect supratherapeutic INR in the setting of antibiotic use Hypertension - continue his routine medications Fibromyalgia - continue Lyrica Asthma Continue inhaler/formulary. Patient's home inhaler switched to formulary equivalent, reports his can bring in his home. If he brings in his home may verify with pharmacy and use his home Wixela twice daily instead. No signs of asthma exacerbation Hyperlipidemia Continue statin DVT prophylaxis: Repeat INR in AM Disposition: Medical surgical Diet: Heart healthy CODE STATUS: Full code (2) Infected dog bite of hand: (3) Hypertension: (4) Asthma: (5) Hypercholesteremia: (6) History of blood clots: (7) Fibromyalgia: Admission and Anticipated Discharge Date Admission Date: May 24, 2022 Subjective Patient seen after his operation today. Some diaphoresis follow his operation initially but doing well now. Still having some pain down his thenar eminence but he feels the pain has improved from before the operation. Review of Systems Review of Systems: All systems reviewed & are unremarkable except as noted in Subjective Physical Exam Constitutional: WD/WN, vitals as above Respiratory: normal respiratory effort, lungs clear to auscultation Cardiovascular: RRR, no murmur, no edema Gastrointestinal (Abdomen): normal bowel sounds, soft, nontender, no hepatosplenomegaly Musculoskeletal: surgical dressing not removed. Fingers green with anti septic but moving his fingers and thumb ok. Psychiatric: A+Ox3, euthymic affect Results & Data Results & Data ([facility]) Vital Signs (Past 12 Hours) Vital Signs Temp Pulse Pulse Resp BP BP Pulse Ox 05/25/22 17:00 59 L 18 110/71 94 05/25/22 16:02 36.5 C 65 16 105/70 95 05/25/22 15:29 36.9 C 61 16 108/73 94 05/25/22 14:58 36.7 C 16 105/67 94 05/25/22 14:25 53 L 14 116/76 96 05/25/22 14:15 53 L 17 110/75 94 05/25/22 14:05 36.4 C L 56 L 14 122/76 95 05/25/22 13:55 52 L 12 118/73 99 05/25/22 13:45 54 L 12 118/74 98 05/25/22 13:35 59 L 20 116/83 97 05/25/22 13:25 36.1 C L 74 16 115/75 100 05/25/22 11:09 36.6 C 54 L 18 120/79 96 O2 Del Method O2 Flow Rate 05/25/22 17:00 Room Air 05/25/22 16:02 Room Air 05/25/22 15:29 Room Air 05/25/22 14:58 Room Air 05/25/22 14:25 Room Air 05/25/22 14:15 Room Air 05/25/22 14:05 Room Air 05/25/22 13:55 Oxymask 3 05/25/22 13:45 Oxymask 3 05/25/22 13:35 Oxymask 5 05/25/22 13:25 Oxymask 9 05/25/22 11:09 Room Air PG Care Time/CCT Total # of Minutes Spent Total Time Spent with Patient: Total time spent is greater than 50% in coordination of care (as documented) at patient's floor/unit and/or counseling patient: Coding Level of Care Code 71448 Subseq Hosp Care Lvl 2 Diagnoses Cellulitis of left hand L03.114 Infected dog bite of hand S61.459A; L08.9; W54.0XXA Hypertension I10 Hypertension type: unspecified Asthma J45.909 Hypercholesteremia E78.00 History of blood clots Z86.718 Fibromyalgia M79.7 (1) Hypertension Hypertension type: unspecified Qualified Code(s): I10 - Essential (primary) hypertension
[2022-05-25] MEDS ORDERED: levoFLOXacin/D5W 750 MG/150 ML BAG IV SCH (21:00)
[2022-05-26] MEDS: metroNIDAZOLE 500 MG/100 ML BAG IV SCH ×2 (01:10→09:10)
--- NOTE | 2022-05-26 07:32 | Orthopedic Progress Note ---
Date of Service May 26, 2022 Assessment & Plan (1) Cellulitis of left hand: (2) Infected dog bite of hand: Plan Making expected progress on postop day 1. No evidence of substantial deep space infection. The bite wound did not propagate deep. It is likely there is some gout inflammation contributing to pain with the tophi at the MCP joint as well as the smoldering bursitis of his ipsilateral elbow. Would recommend treating as it is a case of superficial soft tissue infection that had surgical debridement. -Recommend transition to oral antibiotics within 24 hours of surgery. Coverage should include dog bite organisms such as Pasteurella. He did tolerate cephalosporins perioperatively, in light of childhood reaction to Penicillin -We will continue to follow as an outpatient, including tracking the superficial and deep culture from the OR. -Pain control per primary team. Would recommend high-dose acetaminophen, as needed oxycodone, and a nonsteroidal anti-inflammatory if it does not complicate his anticoagulation. -I have encouraged establishing rheumatologic care for maintenance of his gout. -We reviewed hand and finger range of motion exercises today. These can be self-directed for now. -We will see him in 2 weeks for suture removal. I encouraged him to contact our clinic worsening symptoms or wound drainage. We will continue to follow while in-house. -We will need note for work: Recommend no work until antibiotics are complete and sutures were removed from the healed wound Disposition: Per primary team. Would recommend discharge to outpatient care as early as today if can find acceptable antibiotic regimen Subjective Reports that his pain is dramatically improved. The index finger MCP joint is stiff but not nearly as painful as yesterday. Otherwise tolerated anesthesia well. Appetite normal. No other complaints. Review of Systems All systems reviewed & are unremarkable except as noted in HPI & below. Physical Exam Left hand: Dressing was taken down. No significant digital edema. Mild edema about the MCP joint, as expected. Wound was well approximated without erythema or drainage. Minimal palmar tenderness. Intact wrist range of motion. Remains with stiff motion to the MP and IP joint of the index finger, as expected. Demonstrated range of motion exercises. Neurovascular intact Constitutional WD/WN, vitals as above no acute distress and not intoxicated appearing Respiratory normal respiratory effort; no labored breathing Cardiovascular Extremities: normal capillary refill Results & Data Results & Data Laboratory Results Laboratory Tests 05/24/22 05/25/22 05/25/22 10:23 06:00 06:00 WBC 10.35 C-Reactive Protein 2.43 H 1.99 H Diagnostic Findings . PG Care Time/CCT Total # of Minutes Spent Total Time Spent with Patient: Total time spent is greater than 50% in coordination of care (as documented) at patient's floor/unit and/or counseling patient: Coding Level of Care Code 75951 Post Operative Follow-Up Diagnoses Cellulitis of left hand L03.114 Infected dog bite of hand S61.459A; L08.9; W54.0XXA
[2022-05-26 07:37] LABS: Basophils # (auto) 0.06 K/uL (0-0.2); Basophils % (auto) 0.7 %; Eosinophils # (auto) 0.14 K/uL (0-0.50); Eosinophils % (auto) 1.6 %; Hematocrit (blood only) 41.7 % (40.1-51.0); Immature Granulocytes # (auto) 0.36 K/uL (0.00-0.02); Lymphocytes # (auto) 2.48 K/uL (1.2-3.4); Lymphocytes % (auto) 27.8 %; Mean Corpuscular Hemoglobin 29.1 pg (25.0-34.0); Mean Corpuscular Hgb Conc 33.6 g/dL (32.0-36.0); Mean Corpuscular Volume 86.7 fL (80.0-100.0); Mean Platelet Volume 10.1 fL (9.4-12.4); Monocytes # (auto) 0.66 K/uL (0.24-0.82); Monocytes % (auto) 7.4 %; Neutrophils # (auto) 5.23 K/uL (1.4-6.5); Neutrophils % (auto) 58.5 %; Platelet Count 245 K/uL (130-400); RDW Standard Deviation 41.1 fL (36.4-46.3); Red Blood Count 4.81 M/uL (4.63-6.08); White Blood Count 8.93 K/ul (4.8-10.8)
[2022-05-26] MEDS: PREGABALIN 75 MG CAP PO SCH (07:43)
[2022-05-26] MEDS: LOSARTAN POTASSIUM 50 MG TAB PO SCH (07:43)
[2022-05-26] MEDS: FLUTICASONE/VILANTEROL 200/25MCG 14 PUFFS/INHALER INH SCH ×2 (07:43→07:48)
[2022-05-26] MEDS: hydroCHLOROthiazide 25 MG TAB PO SCH (07:48)
[2022-05-26 07:58] LABS: BUN Creatinine Ratio 20.8 (10-20); C Reactive Protein 1.67 mg/dl (0-0.5); Calcium 8.6 mg/dl (8.5-10.1); Creatinine Clr Calc Pharmacy 104.3 ml/min; Est GFR (African American) 91.8 ml/min; Est GFR (Non-African American) 79.2 ml/min
[2022-05-26 07:59] LABS: INR 2.5 (0.9-1.1); Prothrombin Time 25.3 Seconds (9.0-12.0)
[2022-05-26] MEDS ORDERED: DOXYCYCLINE HYCLATE 100 MG in DEXTROSE 5% 100 ML IV SCH (09:00)
[2022-05-26] MEDS: KETOROLAC TROMETHAMINE 15 MG/ML VIAL IV PRN (11:02)
--- NOTE | 2022-05-26 11:42 | Hospitalist Progress Note ---
Date of Service May 26, 2022 Assessment & Plan (1) Cellulitis of left hand: Plan: Infected Dog Bite R Hand - Dog Bite 05/14-05/15. Did not initially report this, was seen for UTI 05/17, and then returned 05/19 with hand pain for which Flagyl was added to Cipro which he was placed on for the UTI - Penicillin allergy, unknown reaction, recommend follow up testing as outpatient, pt does not wish to try Augmentin as an inpatient - per current ID connect guidelines (doxy vs. 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 INR greater than 3 on admission, unclear INR this morning when he was taken to surgery but was not reversed Warfarin held INR trended Suspect supratherapeutic INR in the setting of antibiotic use Hypertension - continue his routine medications Fibromyalgia - continue Lyrica Asthma Continue inhaler/formulary. Patient's home inhaler switched to formulary equivalent, reports his can bring in his home. If he brings in his home may verify with pharmacy and use his home Wixela twice daily instead. No signs of asthma exacerbation Hyperlipidemia Continue statin DVT prophylaxis: Repeat INR in AM Disposition: Medical surgical Diet: Heart healthy CODE STATUS: Full code (2) Infected dog bite of hand: (3) Hypertension: (4) Asthma: (5) Hypercholesteremia: (6) History of blood clots: (7) Fibromyalgia: Admission and Anticipated Discharge Date Admission Date: May 24, 2022 Results & Data Results & Data ([facility]) Vital Signs (Past 12 Hours) Vital Signs Temp Pulse Resp BP Pulse Ox O2 Del Method 05/26/22 07:33 36.6 C 47 L 16 108/68 96 Room Air 05/26/22 07:15 Room Air 05/26/22 00:05 36.6 C 55 L 18 117/72 96 Room Air PG Care Time/CCT Total # of Minutes Spent Total Time Spent with Patient: Total time spent is greater than 50% in coordination of care (as documented) at patient's floor/unit and/or counseling patient: Coding Diagnoses Cellulitis of left hand L03.114 Infected dog bite of hand S61.459A; L08.9; W54.0XXA Hypertension I10 Hypertension type: unspecified Asthma J45.909 Hypercholesteremia E78.00 History of blood clots Z86.718 Fibromyalgia M79.7 (1) Hypertension Hypertension type: unspecified Qualified Code(s): I10 - Essential (primary) hypertension
--- NOTE | 2022-05-26 11:50 | Discharge Summary ---
Date of Service May 26, 2022 Admission HPI Per Admitting Provider Magdiel is a 56-year-old male with a past medical history of hyperlipidemia, gout, hypertension, asthma who is right-hand dominant and who presents for reevaluation of left hand pain. Recently completed a 10-day course of ciprofloxacin for UTI, presents today with pain in the left hand and elbow after a dog bite several days prior. He was seen in the ER following this and Flagyl was added to ciprofloxacin. Elbow pain completely resolved, but continues to have pain at the left second MCP joint near the dog bite. [facility] who was not scheduled for follow-up until next week. CT shows left second finger cellulitis with suspected myositis of the flexor muscle. Soft tissue calcifications are present, left second metacarpophalangeal joint effusion with thickening and enhancement nonspecific but which cannot exclude septic arthritis Per patient got nipped by his dog when playing on Sat, was seen and started on Flagyl. Was seen on Tuesday for a UTI but hadn't mentioned the hand bite. At first pain was from elbow to hand, after Cipro/Flagyl the elbow pain completely resolved and can move but hand pain has not improved at all. Pain is worse in 2nd MCP and PIP, pain radiating between the two joints when he bends it. WOrsened by pain. Can only flex 2nd digit about 90 degrees before limited by induction of pain. No numbness/tingling in the figertips. No pain in MCP of the 1, 3-5th digits. No pain on wrist extension, +pain fromtightness on wrist flexion at the knuckle. No fevers, chills, sweats, numbness, tingling. +swelling in the hand. No pus/discharge. Abx as noted, APAP 650mg 3 pills at once in the evening. Helps a little. At present pain is 4/10. Has not taking any tylneol today. No narcotics per pt 2/2 severe nausea Medical History: Reviewed Medications: Reviewed. Takes Losartan, atorvastain, hctz, lyrica, warfarin. Wixela Surgical History: Reviewed Allergies: Reviewed. PCN but not sure what the allergy was. Social History: Chews, 1 can per week. No alcohol use. Code Status: would be surrogate DM. Full Code. Principal Diagnosis dog bite with cellulitis and abscess left hand Discharge Exam hand bandaged dorsally. No edema. Normal coloration left hand digits and normal capillary refill Discharge Data Allergies Allergy/AdvReac Type Severity Reaction Status Date / Time Penicillins Allergy Unknown CAN'T Verified 05/26/22 07:31 REMEMBER Consultations 05/24/22 14:24 ED Decision to Admit Stat 05/24/22 14:36 Consult Orthopedic Surgery Routine Procedures Performed Operation Date: 05/25/22 07:00 Actual Procedures p Incision and Drainage Left Hand(Left) - Salvatore Spaulding MD Ordered Studies 05/24/22 10:11 CT hand LT w con Stat Hospital Course (1) Cellulitis of left hand: with abscess. Treated with I&D and IV antibiotics. Home on po doxycycline and flagyl. (2) Infected dog bite of hand: completed this admission. Allergic to PCN. Treated with doxycycline and flagyl. Improved (3) Hypertension: controlled with current meds (4) Asthma: stable. Inhalers as needed (5) Hypercholesteremia: statin therapy (6) History of blood clots: coumadin therapy. INR 2.5 today, 05/26 (7) Fibromyalgia: stable with current med management Plan home today, 05/26, on po doxycycline and flagyl. Off work until cleared by PCP. Total Time Total Time Spent Total Time Spent (In Minutes): 35 minutes Discharge Plan Discharge Items Patient Disposition: Home - Self-Care Reason For Visit: DOG BITE, CELLULITIS, ?SEPTIC ARTHRITIS Discharge Diagnosis: Cellulitis and abscess left hand from dog bite Activity: Per Instructions section Lifting: No more than 5 pounds Driving/Machine Use: No limitations Non-emergency contact: Primary Care Provider and Surgeon Call non-emergency contact if: you have any medication questions Follow-up/Referrals: Salvatore Spaulding MD [Surgeon] - 06/09/22 11:00 am PCP,NO [Primary Care Provider] - Diet: Regular and Heart Healthy Addtl Attending Provider Instructions: take doxycycline and flagyl for 10 days as directed. 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 Keep it clean and dry and covered. After 3 days, you may shower normally. Let soap and water run over and pat dry. Cover the incisions with a clean bandage or bandaids until there is no drainage for over 24 hours. Try to resume normal hand motion. Stretch the involved joints gently. Make a fist and get the fingers straight. Followup with the orthopedic clinic in 10-14 days for wound check and suture removal. Complete antibiotics as prescribed. Call with any questions or worsening condition. Pending Studies at Discharge: No Stand-Alone Forms: [facility], Work/School Release, Smoking Cessation Medications and DC Order Prescriptions: New metronidazole 500 mg Tablet 500 mg PO TID Qty: 18 0RF warfarin 5 mg Tablet 5 mg PO DAILY@1600 Qty: 10 0RF doxycycline hyclate 100 mg capsule 100 mg PO BID 10 Days Qty: 20 0RF Continued losartan 100 mg tablet 100 mg PO DAILY warfarin 10 mg tablet 5 mg PO QPM cholecalciferol (vitamin D3) 1,000 unit Tablet,Chewable 1,000 unit PO DAILY metronidazole 500 mg tablet 500 mg PO TID Qty: 29 0RF atorvastatin 20 mg tablet 20 mg PO QPM pregabalin [Lyrica] 75 mg Capsule 75 mg PO DAILY hydrochlorothiazide 12.5 mg tablet 12.5 mg PO DAILY fluticasone propion-salmeterol [Wixela Inhub] 500-50 mcg/dose blister with device 2 inh INHALATION BID Discontinued ciprofloxacin HCl [Cipro] 500 mg tablet 500 mg PO BID 14 Days Qty: 28 0RF Discharge Orders: Discharge Order (Routine); Ordered 05/26/22 Ordered By: Luigi Jacobo Admission Data Admit Date/Time: 05/24/22 14:35 Attending Provider: Luigi Jacobo Admit Provider: Wes You Primary Care Provider: PCP,NO Other Providers: [facility] ; Wes You ; Salvatore Spaulding Coding Level of Care Code D/C DAY MANAGEMENT >30 MINS Diagnoses Cellulitis of left hand L03.114 Infected dog bite of hand S61.459A; L08.9; W54.0XXA Hypertension I10 Hypertension type: unspecified Asthma J45.909 Hypercholesteremia E78.00 History of blood clots Z86.718 Fibromyalgia M79.7
[2022-05-26] MEDS ORDERED: metroNIDAZOLE 500 MG TAB PO SCH (14:00)
[2022-05-26] MEDS ORDERED: WARFARIN SOD 5 MG TAB PO SCH (16:00)
== END 2022-05-26 13:00 | disposition home or self-care (01) ==
LOC: ED 08:59 → 3N 08:59 → SUATTDRO 14:35 → 3N 17:12